=== PATIENT | female | born 1980 ===

== ENCOUNTER 2018-09-21 10:42 | Emergency (ER) | payer OTHER ==
[~2018-09-21] VITALS: Ht 152.4 cm; Wt 56.7 kg
== END 2018-09-21 13:45 | disposition home or self-care (01) ==
LOC: ER
DX: S13.4XXA Sprain of ligaments of cervical spine, initial encounter (principal); V49.9XXA Car occupant (driver) (passenger) injured in unspecified traffic accident, initial encounter; Y93.89 Activity, other specified; Y92.488 Other paved roadways as the place of occurrence of the external cause; Y99.8 Other external cause status

== ENCOUNTER 2021-08-13 11:03 | Outpatient (CLI) | payer OTHER | END 2021-08-13 11:50 | disposition home or self-care (01) | LOC: SONOGRAMA 11:03 | PROVIDERS: ATTEND Specialist | DX: O20.0 Threatened abortion (principal) ==

== ENCOUNTER 2021-08-15 09:07 | Day surgery (SDC) | payer OTHER | END 2021-08-15 20:30 | disposition home or self-care (01) | LOC: CIR.AMB 09:07 | PROVIDERS: ATTEND Specialist | DX: O02.1 Missed abortion (principal) ==